=== PATIENT | female | born 1995 | race Caucasian/White ===

== ENCOUNTER 2018-03-03 18:00 | Observation (INO) | payer OTHER ==
[~2018-03-03] VITALS: Ht 157.5 cm; Wt 62.6 kg
[2018-03-03] MEDS ORDERED: FERR-252 PO (18:46)
[2018-03-03] MEDS ORDERED: PNV91TAB10 PO (18:46)
[2018-03-03 19:27] LABS: BASOPHILS % (AUTO) 0.1 % (0.0-2.0); EOSINOPHILS # (AUTO) 0.1 K/uL (0-0.4); EOSINOPHILS % (AUTO) 0.7 % (0.0-4.0); HEMATOCRIT 32.9 % (36-48); HEMOGLOBIN 11.1 g/dL (12.0-16.0); LYMPHOCYTES # (AUTO) 1.8 K/uL (2.5-16.5); LYMPHOCYTES % (AUTO) 21.2 % (20.5-51.1); MEAN CORPUSCULAR HEMOGLOBIN 31 pg (27-31); MEAN CORPUSCULAR HGB CONC 34 g/dL (33-37); MEAN CORPUSCULAR VOLUME 90.3 fL (80-94); MONOCYTES # (AUTO) 0.7 K/uL (0.8-1.0); MONOCYTES % (AUTO) 8.4 % (1.7-9.3); NEUTROPHILS % (AUTO) 69.6 % (42.2-75.2); PLATELET COUNT (AUTO) 195 K/uL (140-450); RED BLOOD CELL COUNT(AUTO) 3.64 MIL/uL (4.20-5.40); RED CELL DISTRIBUTION WIDTH 14.4 % (11.6-13.7); WHITE BLOOD COUNT (AUTO) 8.6 K/uL (4.8-10.8)
[2018-03-03] MEDS: LACTATED RINGERS 1,000 ML IV SCH (19:29)
[2018-03-03] MEDS: TERBUTALINE 1 MG/ML VIAL SUBQ SCH ×2 (19:30→20:01)
[2018-03-03] MEDS ORDERED: BETAMETH ACET/BETAMETH NA PH 30 MG/5 ML VIAL IM ONE (19:32)
[2018-03-03] MEDS ORDERED: TERBUTALINE 1 MG/ML VIAL SUBQ ONE (19:32)
[2018-03-03] MEDS: BETAMETH ACET/BETAMETH NA PH 30 MG/5 ML VIAL IM SCH (19:33)
[2018-03-03 19:50] LABS: PROTHROMBIN TIME 9.3 secs (10.8-13.4)
[2018-03-03 20:01] LABS: APPEARANCE,URINE CLEAR (CLEAR); BILIRUBIN,URINE NEGATIVE (NEGATIVE); BLOOD, URINE NEGATIVE (NEGATIVE); COLOR,URINE YELLOW (YELLOW); LEUKOCYTE ESTERASE ,URINE NEGATIVE (NEGATIVE); NITRITE, URINE NEGATIVE (NEGATIVE); PH,URINE 6.5 (5.0-9.0); UGLUCOSE NEGATIVE (NEGATIVE)
[2018-03-04] MEDS: TERBUTALINE 2.5 MG TAB PO PRN ×2 (00:02→04:04)
[2018-03-04] MEDS: LACTATED RINGERS 1,000 ML IV SCH (03:26)
[2018-03-04] MEDS ORDERED: TERBUTALINE 2.5 MG TAB ONE ×4 (04:06→11:47)
[2018-03-04] MEDS ORDERED: TERBUTALINE 2.5 MG TAB PO SCH (08:00)
[2018-03-04] MEDS ORDERED: BETAMETH ACET/BETAMETH NA PH 30 MG/5 ML VIAL IM ONE (08:03)
[2018-03-04] MEDS: TERBUTALINE 2.5 MG TAB PO SCH ×2 (08:07→11:50)
[2018-03-04] MEDS: BETAMETH ACET/BETAMETH NA PH 30 MG/5 ML VIAL IM SCH (08:09)
[2018-03-04] MEDS ORDERED: TERB2.5T6 PO (14:53)
== END 2018-03-04 15:00 | disposition home or self-care (01) ==
LOC: MLD 18:00
PROVIDERS: ADMIT Obstetrics & Gynecology; ATTEND Obstetrics & Gynecology
DX: O26.893 Other specified pregnancy related conditions, third trimester (principal); R10.9 Unspecified abdominal pain; O32.1XX0 Maternal care for breech presentation, not applicable or unspecified; Z3A.36 36 weeks gestation of pregnancy
CPT/HCPCS: 36415; 76805; 81003; 85025; 85379; 85384; 85610; 85730; 96372; G0378; J0702; J3105; J7120; Q0092

== ENCOUNTER 2018-03-09 14:36 | Inpatient (IN) | payer OTHER ==
[~2018-03-09] VITALS: Ht 162.6 cm; Wt 63.5 kg
[~2018-03-09 14:36] MED LIST: FERR-252 PO; PNV91TAB10 PO; TERB2.5T6 PO
[2018-03-09] MEDS ORDERED: LACTATED RINGERS 1,000 ML IV SCH (15:05)
[2018-03-09] MEDS ORDERED: TERBUTALINE 1 MG/ML VIAL SUBQ SCH (15:05)
[2018-03-09 15:08] VITALS: BP 134/85
[2018-03-09] MEDS ORDERED: TERBUTALINE 1 MG/ML VIAL SUBQ ONE (15:16)
== END 2018-03-09 16:20 | disposition home or self-care (01) | DRG 566 ==
LOC: MLD 14:36 → UNDOADMOB 14:36 → MLD 14:36 → UNDODISIN 14:36 → UNDODISOB 16:30 → EDSTATUS 03-11 09:45
PROVIDERS: ADMIT Obstetrics & Gynecology; ATTEND Obstetrics & Gynecology
DX: O26.899 Other specified pregnancy related conditions, unspecified trimester (principal); O26.853 Spotting complicating pregnancy, third trimester; Z3A.36 36 weeks gestation of pregnancy
CPT/HCPCS: 76815; 81000; G0378; J3105; Q0092

== ENCOUNTER 2018-03-13 11:03 | Inpatient (IN) | payer OTHER ==
[~2018-03-13] VITALS: Ht 157.5 cm; Wt 63.5 kg
[~2018-03-13 11:03] MED LIST changes: -TERB2.5T6 PO
[2018-03-13 12:09] VITALS: BP 132/86
[2018-03-14] MEDS ORDERED: BRE5 PO (18:32)
[2018-03-14] MEDS ORDERED: ACET-2619 PO (18:32)
== END 2018-03-13 14:20 | disposition home or self-care (01) | DRG 565 ==
LOC: MLD 11:03
PROVIDERS: ADMIT Obstetrics & Gynecology; ATTEND Obstetrics & Gynecology
DX: O47.1 False labor at or after 37 completed weeks of gestation (principal); O32.1XX0 Maternal care for breech presentation, not applicable or unspecified; Z3A.37 37 weeks gestation of pregnancy
CPT/HCPCS: 76815; 81000; Q0092

== ENCOUNTER 2018-03-14 16:14 | Inpatient (IN) | payer OTHER ==
[~2018-03-14] VITALS: Ht 157.5 cm; Wt 63.5 kg
[2018-03-14] MEDS ORDERED: TERBUTALINE 1 MG/ML VIAL SUBQ SCH (16:40)
[2018-03-14] MEDS ORDERED: TERBUTALINE 1 MG/ML VIAL SUBQ ONE (16:45)
[2018-03-14 17:00] VITALS: BP 134/87
[2018-03-14] MEDS: LACTATED RINGERS 1,000 ML IV SCH (17:35)
[2018-03-14] MEDS ORDERED: ACET-2619 PO (18:32)
[2018-03-14] MEDS ORDERED: BRE5 PO (18:32)
[2018-03-14 18:35] LABS: APPEARANCE,URINE CLEAR (CLEAR); BILIRUBIN,URINE NEGATIVE (NEGATIVE); BLOOD, URINE NEGATIVE (NEGATIVE); COLOR,URINE YELLOW (YELLOW); LEUKOCYTE ESTERASE ,URINE NEGATIVE (NEGATIVE); NITRITE, URINE NEGATIVE (NEGATIVE); PH,URINE 7.5 (5.0-9.0); UGLUCOSE NEGATIVE (NEGATIVE)
[2018-03-14 18:40] LABS: BASOPHILS % (AUTO) 0.1 % (0.0-2.0); EOSINOPHILS % (AUTO) 0.2 % (0.0-4.0); HEMATOCRIT 35.9 % (36-48); HEMOGLOBIN 12.1 g/dL (12.0-16.0); LYMPHOCYTES # (AUTO) 1.8 K/uL (2.5-16.5); MEAN CORPUSCULAR HEMOGLOBIN 31 pg (27-31); MEAN CORPUSCULAR HGB CONC 34 g/dL (33-37); MEAN CORPUSCULAR VOLUME 91.4 fL (80-94); MONOCYTES # (AUTO) 0.8 K/uL (0.8-1.0); MONOCYTES % (AUTO) 5.9 % (1.7-9.3); NEUTROPHILS # (AUTO) 10.1 K/uL (1.8-7.7); NEUTROPHILS % (AUTO) 79.8 % (42.2-75.2); PLATELET COUNT (AUTO) 196 K/uL (140-450); RED BLOOD CELL COUNT(AUTO) 3.92 MIL/uL (4.20-5.40); RED CELL DISTRIBUTION WIDTH 14.8 % (11.6-13.7); WHITE BLOOD COUNT (AUTO) 12.6 K/uL (4.8-10.8)
[2018-03-14 19:19] LABS: BARBITURATE, URINE NEGATIVE ng/ml (NEG <=200); BENZODIAZEPINE, URINE NEGATIVE ng/mL (NEG <=200); CANNABINOID, URINE NEGATIVE ng/mL (NEG <=50); COCAINE, URINE NEGATIVE ng/mL (NEG <=300); OPIATE, URINE NEGATIVE ng/mL (NEG <=2000); PHENCYCLIDINE SCREEN,URINE NEGATIVE ng/mL (NEG <=25)
[2018-03-14 19:21] LABS: ANION GAP 20.5 (8-16); CARBON DIOXIDE 17.8 mmol/L (21-32); CREATININE 0.7 mg/dL (0.6-1.3); POTASSIUM 3.3 mmol/L (3.5-5.1); TOTAL BILIRUBIN 0.2 mg/dL (0.0-1.0)
[2018-03-14 19:22] LABS: ALBUMIN 2.9 g/dL (3.4-5.0)
[2018-03-14] MEDS ORDERED: ceFAZolin 1,000 MG VIAL ONE (21:43)
[2018-03-14] MEDS ORDERED: BUPIVACAINE-MPF 0.75% 10 ML VIAL INJ ONE (21:50)
[2018-03-14] MEDS ORDERED: MORPHINE PRES FREE 10 MG/10 ML AMP IV ONE (22:01)
[2018-03-14] MEDS ORDERED: ceFAZolin 1,000 MG VIAL IVP ONE (22:05)
[2018-03-14] MEDS ORDERED: OXYTOCIN 20 UNITS in LACTATED RINGERS 1,000 ML IV SCH (22:19)
[2018-03-14] MEDS ORDERED: HYDROmorphone 1 MG/ML AMP IVP PRN (22:20)
[2018-03-14] MEDS ORDERED: ONDANSETRON 4 MG/2 ML VIAL IVP PRN ×2 (22:20)
[2018-03-14] MEDS ORDERED: diphenhydrAMINE 50 MG/ML VIAL IVP PRN ×2 (22:20)
[2018-03-14] MEDS ORDERED: MEPERIDINE 25 MG/ML SYR IVP PRN (22:20)
[2018-03-14] MEDS ORDERED: NALBUPHINE 10 MG/ML AMP IVP PRN (22:20)
[2018-03-14] MEDS ORDERED: NALOXONE 0.4 MG/ML VIAL IVP PRN ×3 (22:20)
[2018-03-15] MEDS ORDERED: OXYTOCIN 20 UNITS in LACTATED RINGERS 1,000 ML IV SCH ×6 (00:16→22:00)
[2018-03-15] MEDS ORDERED: MEASLES, MUMPS, AND RUBELLA 1 VIAL SQVAC PRN (00:20)
[2018-03-15] MEDS ORDERED: HYDROmorphone 1 MG/ML AMP IVP PRN (00:20)
[2018-03-15] MEDS ORDERED: KETOROLAC 30 MG/ML VIAL IVP PRN (00:20)
[2018-03-15] MEDS ORDERED: ONDANSETRON 4 MG/2 ML VIAL ONE (00:47)
[2018-03-15] MEDS: KETOROLAC 30 MG/ML VIAL IM/IVP SCH ×2 (06:01→12:09)
[2018-03-15] MEDS ORDERED: OXYTOCIN 20 UNITS/LR PREMIX 1,000 ML IV ONE (06:59)
--- NOTE | 2018-03-15 08:31 | NUR ---
PATIENT HAS BEEN SCREENED AND CATEGORIZED LOW NUTRITION RISK. PATIENT WILL BE SEEN WITHIN 7 DAYS OF ADMISSION. 03/21/[address]
[2018-03-15] MEDS ORDERED: BISACODYL 5 MG TABEC PO SCH (09:00)
[2018-03-15] MEDS ORDERED: DOCUSATE SODIUM 100 MG GELCAP PO SCH (09:00)
[2018-03-15] MEDS ORDERED: SIMETHICONE 80 MG TAB.CHEW PO SCH (09:00)
[2018-03-15 09:12] LABS: BASOPHILS % (AUTO) 0.1 % (0.0-2.0); EOSINOPHILS % (AUTO) 0.1 % (0.0-4.0); HEMATOCRIT 29.1 % (36-48); HEMOGLOBIN 9.8 g/dL (12.0-16.0); LYMPHOCYTES # (AUTO) 1.8 K/uL (2.5-16.5); MEAN CORPUSCULAR HEMOGLOBIN 31 pg (27-31); MEAN CORPUSCULAR HGB CONC 34 g/dL (33-37); MEAN CORPUSCULAR VOLUME 92.1 fL (80-94); MONOCYTES # (AUTO) 0.7 K/uL (0.8-1.0); MONOCYTES % (AUTO) 5.1 % (1.7-9.3); NEUTROPHILS # (AUTO) 10.5 K/uL (1.8-7.7); NEUTROPHILS % (AUTO) 80.7 % (42.2-75.2); PLATELET COUNT (AUTO) 165 K/uL (140-450); RED BLOOD CELL COUNT(AUTO) 3.16 MIL/uL (4.20-5.40); RED CELL DISTRIBUTION WIDTH 14.7 % (11.6-13.7)
[2018-03-15] MEDS: LACTATED RINGERS 1,000 ML IV SCH (23:16)
[2018-03-16] MEDS: LACTATED RINGERS 1,000 ML IV SCH (07:08)
[2018-03-16] MEDS ORDERED: INFLUENZA VIRUS VACCINE QUAD 0.5 ML SYR IMVAC PRN (10:00)
[2018-03-16] MEDS ORDERED: IBUPROFEN 600 MG TAB PO PRN (14:00)
[2018-03-16] MEDS ORDERED: SODIUM PHOSPHATE 118 ML ENEM RC PRN (18:00)
[2018-03-17] MEDS: DOCUSATE SODIUM 100 MG GELCAP PO SCH (09:00)
[2018-03-17] MEDS: SIMETHICONE 80 MG TAB.CHEW PO SCH ×2 (10:12→17:42)
[2018-03-17] MEDS: BISACODYL 5 MG TABEC PO SCH (10:12)
[2018-03-18] MEDS: BISACODYL 5 MG TABEC PO SCH (09:00)
[2018-03-18] MEDS: DOCUSATE SODIUM 100 MG GELCAP PO SCH (09:10)
[2018-03-18] MEDS: SIMETHICONE 80 MG TAB.CHEW PO SCH (09:11)
== END 2018-03-18 15:15 | disposition home or self-care (01) | DRG 540 ==
LOC: MLD 16:14 → OBSVTOIN 16:35 → MFCC 03-15 00:49
PROVIDERS: ADMIT Obstetrics & Gynecology; ATTEND Obstetrics & Gynecology
PROC: 10D00Z1 Extraction of Products of Conception, Low, Open Approach (ICD-10-PCS; principal; 2018-03-14 22:00)
PROC: 3E02340 Introduction of Influenza Vaccine into Muscle, Percutaneous Approach (ICD-10-PCS; 2018-03-16)
DX: O32.8XX0 Maternal care for other malpresentation of fetus, not applicable or unspecified (principal); D25.9 Leiomyoma of uterus, unspecified; O69.81X0 Labor and delivery complicated by cord around neck, without compression, not applicable or unspecified; O34.13 Maternal care for benign tumor of corpus uteri, third trimester; Z37.0 Single live birth; Z3A.37 37 weeks gestation of pregnancy; Z23 Encounter for immunization
CPT/HCPCS: 36415; 51702; 76815; 80053; 80305; 81003; 85025; 86592; 86886; 86900; 86901; 87086; 90658; 90715; G0378; J0690; J1885; J2270; J2405; J2590; J3105; J3490; J7120; Q0092

== ENCOUNTER 2021-06-04 10:12 | Emergency (ER) | payer SELFPAY ==
[~2021-06-04] VITALS: Ht 157.5 cm; Wt 54.4 kg
[~2021-06-04 10:12] MED LIST changes: -FERR-252 PO
[2021-06-04 10:29] VITALS: BP 149/95
--- NOTE | 2021-06-04 10:34 | NUR ---
PT ASSISTED TO BED 12.
--- NOTE | 2021-06-04 10:40 | NUR ---
MONALISA BAKER AT THE BEDSIDE
--- NOTE | 2021-06-04 10:44 | NUR ---
PATIENT PRESENTS TO ED WITH DIZZINESS X 2 DAYS . PT STATES FEELING BODY ACHE AFTER RUBBING A SMALL AMOUNT OF BENZOCAINE ON GUM TO TREAT A TOOTHACHE . DENIES N/V/D; SKIN IS PINK/WARM/DRY; AAOX4 WITH EVEN AND STEADY GAIT; LUNGS CLEAR BL; HR EVEN AND REGULAR; PT DENIES ANY FEVER, CP, SOB, OR COUGH AT THIS TIME; PATIENT STATES PAIN OF 0/10 AT THIS TIME; VSS; PATIENT POSITIONED FOR COMFORT; HOB ELEVATED; BEDRAILS UP X2; BED DOWN. ER MD MADE AWARE OF PT STATUS. MEDHX: NONE NKDA PT DENIES ANY DRUG, ETOH USE.
--- NOTE | 2021-06-04 10:49 | NUR ---
PT STATES DOES NOT WANT ANY MEDICATION TREATMENT AT THIS TIME. WILL TREAT OWN SYMPTOMS AT HOME.
[2021-06-04 10:53] VITALS: BP 122/83
--- NOTE | 2021-06-04 10:55 | NUR ---
Patient discharged with v/s stable. Written and verbal after care instructions given and explained. Patient verbalized understanding. Ambulatory with steady gait. All questions addressed prior to discharge. Advised to follow up with PMD.
== END 2021-06-04 10:55 | disposition home or self-care (01) ==
LOC: MED 10:12
DX: R51.9 Headache, unspecified (principal); R11.0 Nausea; T41.3X5A Adverse effect of local anesthetics, initial encounter; K02.9 Dental caries, unspecified; Z79.899 Other long term (current) drug therapy; Y92.89 Other specified places as the place of occurrence of the external cause
CPT/HCPCS: 99281; 99282